=== PATIENT | male | born 1995 | race Caucasian/White ===

== ENCOUNTER 2017-02-09 09:59 | Emergency (ER) | payer OTHER ==
[~2017-02-09] VITALS: Ht 182.9 cm; Wt 113.4 kg
--- NOTE | 2017-02-09 12:02 | ED Psychosocial ---
General Chief Complaint: Psych/Social Disorder Stated Complaint: SUICIDAL/PSYCH EVAL Nursing Triage Note: Pt reports he has battled with depression since his senior year of high school. Pt reports suicidal thougths started last year until he was placed on medication. Pt reports taking his medication for 1 month before stopping meds due to increased anxiety. Pt reports no suicidal ideations after that time until recently. 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 Pt has suicidal "fantasy" of how he would kill himself but states he does not have a timeline or the means to do so. History of Present Illness Time seen by provider: 11:56 Initial Comments Patient has ER by the orders of his primary care physician for evaluation prior to being placed in inpatient psych. According to Dr. Rachid Salcedo who spoke with me at 10:00 the patient made suicidal ideation without radius suicidal attempt and has a progressively worsening history of depression most recently possible bipolar. Patient is a college student at [employer] and is concerned about missing classes however we'll do whatever needs to. He does not have a psychiatrist and has not any psych meds at this time. Patient states that he had one prior suicide attempt and February 2016 when he tried to cut on his throat and face with a knife but said it hurt too bad however he was definitely feeling like that time so he went and got some help and got started on some citalopram but said he did not complete the months course because it took him from an depressed feeling anxious. He did not follow up with anybody at that time. 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 Now he feels that over the last month or 2 he is been spiraling again and his concerns were that if he did not get on some appropriate medication and attention to include counseling that he might get to the state he was at at that point. He says he has no plan to harm himself or kill himself now. He is not suicidal at the time however he does entertain fantasies of suicide but nothing in particular and no plan. He states he does not use any recreational drugs but he has tried marijuana long time ago and did not like it. He says he used acid several times in July 2015 for about a month and he got off and has not gone back to sense. No other history of injectable snorted or smoked drugs. On review of the clinicians note from today patient has noted he has some days where he sleeps excessively is much his 14 hours a day and some days where he sleeps very little as well as 5 hours a day and has gone without sleeper as long as 3 days at that time he was trying to read more washcloth documentaries and learn how to care cancer. He states he has hyper exuberant hyper energy racing thoughts alternated with periods of depression. At present he is feeling very depressed and endorsing anhedonia. He was seen at [facility] and [facility] and that's when he was started on citalopram which made him feel way worse, irritable, more anxious, difficult to be around others area marijuana caused him a lot of paranoia and an June 2015 he tried LSD 4 times. No legal or gambling trouble. He was diagnosed with ADD as a child and put on medication but not for very long. It made him sick. No history of learning disability. The assessment and plan that time as the patient had bipolar disorder with a currently severe depressed episode without any psychotic features. The plan was to get the patient inpatient psych for mood stabilizers and safety given his suicidal fantasies that he was endorsing today. His fantasies include going on the wooden slitting his own throat. Allergies and Home Medications Allergies Coded Allergies: No Known Drug Allergies (Unverified , 02/09/17) Constitutional: No chills, No diaphoresis, No fever, No malaise EENTM: No ear discharge, No ear pain, No eye pain Respiratory: No cough, No short of breath Cardiovascular: No chest pain, No edema, No palpitations Gastrointestinal: No abdominal pain, No constipation, No diarrhea, No nausea Genitourinary: No discharge, No dysuria Musculoskeletal: No back pain, No joint pain, No joint swelling Skin: No dryness, No pruritus, No rash Psychiatric/Neurological: Denies Headache, Denies Numbness, Denies Paresthesia , Denies Seizure Past Lohwghg-Iyrsme-Kcexvf Hx Patient Social History Alcohol Use: Occasionally Uses (810 drinks usually once a month otherwise one or 2 beers every few days.) Number of Drinks Today: 2 Alcohol Beverage of Choice: Beer, Vodka Recreational Drug Use: No Recent Foreign Travel: No Contact w/Someone Who Travel: No Recent Infectious Disease Expo: No Physical Exam Vital Signs Vital Sign - Last 12Hours 02/09/17 10:40 Temp 97.5 Pulse 75 Resp 18 B/P (MAP) 142/68 Pulse Ox 96 O2 Delivery Room Air Capillary Refill : Less Than 3 Seconds General Appearance: WD/WN, no apparent distress HEENT: PERRL/EOMI, pharynx normal Neck: non-tender, supple Respiratory: chest non-tender, lungs clear, normal breath sounds Cardiovascular: normal peripheral pulses, regular rate, rhythm, no edema Peripheral Pulses: 2+ Radial Pulses (R), 2+ Radial Pulses (L) Gastrointestinal: normal bowel sounds, non tender, soft Extremities: non-tender, normal inspection, no pedal edema, normal capillary refill Neurologic/Psychiatric: school psychologist II-XII nml as tested, alert, normal mood/affect, oriented x 3 Appearance/Memory: appropriate appearance, appropriate insight, neat, no memory impairment, No denies illness Behavior/Eye Contact: cooperative, good eye contact, normal speech Thoughts/Hallucinations: normal thought pattern, no apparent hallucination Skin: normal color, warm/dry Progress/Results/Core Measures Results/Orders Lab Results Laboratory Tests Test 02/09/17 12:27 Range/Units White Blood Count 7.7 4.3-11.0 10^3/uL Red Blood Count 5.30 4.35-5.85 10^6/uL Hemoglobin 15.4 13.3-17.7 G/DL Hematocrit 45 40-54 % Mean Corpuscular Volume 86 80-99 FL Mean Corpuscular Hemoglobin 29 25-34 PG Mean Corpuscular Hemoglobin Concent 34 32-36 G/DL Red Cell Distribution Width 12.4 10.0-14.5 % Platelet Count 283 130-400 10^3/uL Mean Platelet Volume 10.8 H 7.4-10.4 FL Neutrophils (%) (Auto) 63 42-75 % Lymphocytes (%) (Auto) 27 12-44 % Monocytes (%) (Auto) 8 0-12 % Eosinophils (%) (Auto) 2 0-10 % Basophils (%) (Auto) 0 0-10 % Neutrophils # (Auto) 4.8 1.8-7.8 X 10^3 Lymphocytes # (Auto) 2.1 1.0-4.0 X 10^3 Monocytes # (Auto) 0.6 0.0-1.0 X 10^3 Eosinophils # (Auto) 0.2 0.0-0.3 10^3/uL Basophils # (Auto) 0.0 0.0-0.1 10^3/uL Urine Color YELLOW Urine Clarity CLEAR Urine pH 8 5-9 Urine Specific [place] 1.010 L 1.016-1.022 Urine Protein NEGATIVE NEGATIVE Urine Glucose (UA) NEGATIVE NEGATIVE Urine Ketones NEGATIVE NEGATIVE Urine Nitrite NEGATIVE NEGATIVE Urine Bilirubin NEGATIVE NEGATIVE Urine Urobilinogen NORMAL NORMAL MG/DL Urine Leukocyte Esterase NEGATIVE NEGATIVE Urine RBC (Auto) NEGATIVE NEGATIVE Urine RBC NONE /HPF Urine WBC NONE /HPF Urine Squamous Epithelial Cells NONE /HPF Urine Crystals NONE /LPF Urine Bacteria NEGATIVE /HPF Urine Casts NONE /LPF Urine Mucus NEGATIVE /LPF Urine Culture Indicated NO Sodium Level 139 135-145 MMOL/L Potassium Level 4.3 3.6-5.0 MMOL/L Chloride Level 107 98-107 MMOL/L Carbon Dioxide Level 21 21-32 MMOL/L Anion Gap 11 5-14 MMOL/L Blood Urea Nitrogen 9 7-18 MG/DL Creatinine 0.85 0.60-1.30 MG/DL Estimat Glomerular Filtration Rate > 60 BUN/Creatinine Ratio 11 Glucose Level 68 L 70-105 MG/DL Calcium Level 9.7 8.5-10.1 MG/DL Total Bilirubin 0.7 0.1-1.0 MG/DL Aspartate Amino Transf (AST/SGOT) 32 5-34 U/L Alanine Aminotransferase (ALT/SGPT) 52 0-55 U/L Alkaline Phosphatase 72 40-136 U/L Total Protein 7.7 6.4-8.2 GM/DL Albumin 4.4 3.2-4.5 GM/DL Salicylates Level < 5.0 L 5.0-20.0 MG/DL Urine Opiates Screen NEGATIVE NEGATIVE Urine Oxycodone Screen NEGATIVE NEGATIVE Urine Methadone Screen NEGATIVE NEGATIVE Urine Propoxyphene Screen NEGATIVE NEGATIVE Acetaminophen Level < 10 L 10-30 UG/ML Urine Barbiturates Screen NEGATIVE NEGATIVE Ur Tricyclic Antidepressants Screen NEGATIVE NEGATIVE Urine Phencyclidine Screen NEGATIVE NEGATIVE Urine Amphetamines Screen NEGATIVE NEGATIVE Urine Methamphetamines Screen NEGATIVE NEGATIVE Urine Benzodiazepines Screen NEGATIVE NEGATIVE Urine Cocaine Screen NEGATIVE NEGATIVE Urine Cannabinoids Screen NEGATIVE NEGATIVE Serum Alcohol < 10 <10 MG/DL My Orders Orders - SUZETTE LUNA Ua Culture If Indicated (02/09/17 11:52) Cbc With Automated Diff (02/09/17 11:52) Comprehensive Metabolic Panel (02/09/17 11:52) Alcohol (02/09/17 11:52) Drug Screen Stat (Urine) (02/09/17 11:52) Acetaminophen (02/09/17 11:52) Salicylate (02/09/17 11:52) Ekg Tracing (02/09/17 11:52) Saline Lock/Iv-Start (02/09/17 11:52) Monitor-Rhythm Ecg Trace Only (02/09/17 11:52) General/Regular (02/09/17 Lunch) Vital Signs/I&O Vital Sign - Last 12Hours 02/09/17 10:40 Temp 97.5 Pulse 75 Resp 18 B/P (MAP) 142/68 Pulse Ox 96 O2 Delivery Room Air Blood Pressure Mean: 92 Progress Note #1: Time: 12:59 Progress Note By history patient does appear to be bipolar and a depressed state this time. He will probably need to go inpatient psych for his own safety given his recurrent endorsement of suicidal ideation Fantasy. Presently he states he has no plan or suicidal ideation at this time. I've already asked [facility] to come and evaluate the patient. I am advised that they are in the middle of another assessment but will come over next. Progress Note #2: Time: 14:15 Progress Note Lyle East from [facility] evaluated the patient feels would be reasonable to set up outpatient treatment plan including [facility] social services assistant following the patient daily as well as using [facility] as needed start medicines. Tried to contact Rachid Salcedo and left a message so we can discuss may be starting a medicine on him today if she wants. Consults Consults : Consulting Physician: RACHID SALCEDO MD Consults Notes [id number]: Discussed the case and the plan from [facility] and Dr. Salcedo said she would discuss it with the nurse practitioner who was seeing the patient. She is okay with plan. She does not recommend starting a medicine at this time because she will have the nurse practitioner contact patient directly and get a medicine started either today or tomorrow. Departure Impression Impression: Primary Impression: Bipolar 1 disorder, depressed, severe Additional Impression: Suicidal thoughts Disposition: 01 HOME, SELF-CARE Condition: Stable Departure-Patient Inst. Decision time for Depature: 14:37 Referrals: [facility] (PCP/Family) Primary Care Physician Add. Discharge Instructions: Follow the discharge plan and outpatient follow-up management plan as lying out by [facility] LYLE puga. If you have questions you can call him or you can call your clinic's office at [facility] at [phone]. If you begin to feel unstable or have suicidal thoughts please return to the ER immediately or call a trusted friend or family member to get help immediately and give us an opportunity to help you before you make any permanent decisions. All discharge instructions reviewed with patient and/or family. Voiced understanding. Work/School Note: School/Childcare Release Date Seen in the Emergency Department: Feb 09, 2017 Time Dismissed from Emergency Department: 14:41 Return to School: Feb 10, 2017 Restrictions: No Restrictions Copy Copies To 1: CRISTOPHER DUGAN TITUS J Feb 09, 2017 12:02
[2017-02-09 12:38] LABS: BASOPHILS % (AUTO) 0 % (0-10); EOSINOPHILS # (AUTO) 0.2 10^3/uL (0.0-0.3); EOSINOPHILS % (AUTO) 2 % (0-10); LYMPHOCYTES # (AUTO) 2.1 X 10^3 (1.0-4.0); LYMPHOCYTES % (AUTO) 27 % (12-44); MEAN CORPUSCULAR HEMOGLOBIN 29 PG (25-34); MEAN CORPUSCULAR HGB CONC 34 G/DL (32-36); MEAN CORPUSCULAR VOLUME 86 FL (80-99); MEAN PLATELET VOLUME 10.8 FL (7.4-10.4); MONOCYTES # (AUTO) 0.6 X 10^3 (0.0-1.0); MONOCYTES % (AUTO) 8 % (0-12); NEUTROPHILS # (AUTO) 4.8 X 10^3 (1.8-7.8); NEUTROPHILS % (AUTO) 63 % (42-75); PLATELET COUNT 283 10^3/uL (130-400); RED CELL DISTRIBUTION WIDTH 12.4 % (10.0-14.5); WHITE BLOOD COUNT 7.7 10^3/uL (4.3-11.0)
[2017-02-09 12:39] LABS: BILIRUBIN,URINE NEGATIVE (NEGATIVE); KETONES,URINE NEGATIVE (NEGATIVE); LEUKOCYTE ESTERASE ,URINE NEGATIVE (NEGATIVE); NITRITE,URINE NEGATIVE (NEGATIVE); PH,URINE 8 (5-9); PROTEIN,URINE NEGATIVE (NEGATIVE); UROBILINOGEN,URINE NORMAL (NORMAL)
[2017-02-09 12:59] LABS: ALANINE AMINOTRANSFERASE 52 U/L (0-55); ALBUMIN 4.4 GM/DL (3.2-4.5); ALCOHOL < 10 MG/DL (<10); ANION GAP 11 MMOL/L (5-14); ASPARTATE AMINO TRANSFERASE 32 U/L (5-34); BILIRUBIN,TOTAL 0.7 MG/DL (0.1-1.0); BLOOD UREA NITROGEN 9 MG/DL (7-18); BUN/CREATININE RATIO 11; CALCIUM 9.7 MG/DL (8.5-10.1); CARBON DIOXIDE 21 MMOL/L (21-32); CHLORIDE 107 MMOL/L (98-107); CREATININE SERUM 0.85 MG/DL (0.60-1.30); GFR ESTIMATED > 60; GLUCOSE 68 MG/DL (70-105); POTASSIUM 4.3 MMOL/L (3.6-5.0); SALICYLATE < 5.0 MG/DL (5.0-20.0); SODIUM 139 MMOL/L (135-145); TOTAL PROTEIN 7.7 GM/DL (6.4-8.2)
[2017-02-09 13:01] LABS: ACETAMINOPHEN < 10 UG/ML (10-30)
[2017-02-09 14:44] VITALS: BP 120/74
== END 2017-02-09 14:44 | disposition home or self-care (01) ==
LOC: EDUNIT# 09:59 → ER 10:02
DX: F31.5 Bipolar disorder, current episode depressed, severe, with psychotic features (principal); R45.851 Suicidal ideations
CPT/HCPCS: 36415; 80053; 80306; 80320; 80329; 81000; 85025; 99284

== ENCOUNTER 2019-03-19 00:22 | Emergency (ER) | payer SELFPAY ==
[~2019-03-19] VITALS: Ht 182 cm; Wt 127.0 kg
--- NOTE | 2019-03-19 00:37 | ED GU-Male ---
General Chief Complaint: Male Reproductive Stated Complaint: TESTICAL ISSUE,SWOLLEN,BLEEDING Source: patient Exam Limitations: no limitations History of Present Illness Date Seen by Provider: Mar 19, 2019 Time Seen by Provider: 00:21 Initial Comments Patient presents to ER by private conveyance with significant others and chief complaint of right testicular/scrotal swelling pain and blood coming from the scrotum or rectum. He noticed for the past couple days he's been having some blood on his scrotum while urinating. Showing some mild pain. 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 He's not had any other abdominal surgeries. He has some swelling on the top of his le ft testicle was palpable. He denies any blood or discharge from the penis. No difficulty urinating. No nausea or vomiting. He has not taken anything for the pain. He says is been going on for about 3 months and the swelling is just grown since then. He went saw primary care about it at [facility]. They ordered a sonogram which he did not complete. He takes lithium and Latuda for bipolar disorder. Allergies and Home Medications Allergies Coded Allergies: No Known Drug Allergies (Unverified , 02/09/17) Patient Home Medication List Home Medication List Reviewed: Yes Review of Systems Review of Systems Constitutional: No chills, No fever EENTM: No blurred vision, No double vision Respiratory: No cough, No short of breath Cardiovascular: No chest pain, No edema Gastrointestinal: No abdominal pain, No constipation, No diarrhea, No nausea Genitourinary: see HPI; denies burning, denies discharge Past Bcdqefe-Btqyyi-Kqlbgl Hx Patient Social History Alcohol Use: Occasionally Uses Alcohol Beverage of Choice: Beer, Vodka Recreational Drug Use: No Smoking Status: Current Everyday Smoker Recent Foreign Travel: No Contact w/Someone Who Travel: No Past Medical History Surgeries: No Respiratory: No Cardiac: No Neurological: No Genitourinary: No Gastrointestinal: No Musculoskeletal: No Endocrine: No HEENT: No Cancer: No Psychosocial: Yes Depression Integumentary: No Blood Disorders: No Physical Exam Vital Signs Vital Signs - First Documented 03/19/19 00:31 Temp 37.2 Pulse 88 Resp 19 B/P (MAP) 140/101 (114) Pulse Ox 99 O2 Delivery Room Air Capillary Refill : Height, Weight, BMI Height: 6'0" Weight: 250lbs. oz. 113.429165lm; BMI Method:Stated General Appearance: WD/WN, no apparent distress HEENT: PERRL/EOMI, normal ENT inspection Neck: non-tender, full range of motion Cardiovascular: normal peripheral pulses, regular rate, rhythm Respiratory: no respiratory distress, no accessory muscle use Rectal: normal exam Male: No testicular tenderness; other (right upper portion of the scrotum laterally has an indurated area of erythema and tenderness with a central poor draining a small amount of purulent material.) Procedures/Interventions I&D : Site: right lateral scrotum Blade Size: 11 I & D Procedure: betadine prep (chlorhexidine and Betadine) Progress After the risks, benefits and alternatives were explained the patient consented to proceed. Skin was thoroughly cleaned with chlorhexidine and water. Was then soaked in Betadine. We injected 4 cc of 1% lidocaine without epinephrine around the wound until he was anesthetized. We then used an 11 blade and made a cross small incision. We expressed a small amount of purulent material from the central pore. Using cotton tipped swabs the wound was thoroughly probed and loculations were broken up. We then used a syringe and flushed 20 cc of sterile water into the wound. Wound was then cleaned again with chlorhexidine. Loose gauze was placed over to wick away serosanguineous drainage. The patient tolerated the procedure well. Progress/Results/Core Measures Suspected Sepsis SIRS Temperature: Pulse: Respiratory Rate: Blood Pressure / Mean: Results/Orders My Orders Orders - SUZETTE LUNA Occult Blood Stool (03/19/19 00:37) Ua Culture If Indicated (03/19/19 00:37) Vital Signs/I&O 03/19/19 00:31 Temp 37.2 Pulse 88 Resp 19 B/P (MAP) 140/101 (114) Pulse Ox 99 O2 Delivery Room Air Capillary Refill : Departure Impression Primary Impression: Abscess of scrotum Disposition: HOME, SELF-CARE Condition: Improved Departure-Patient Inst. Decision time for Depature: 01:01 Referrals: [facility] (PCP/Family) Primary Care Physician Patient Instructions: Abscess Incision and Drainage (DC) Add. Discharge Instructions: Keep clean with regular soap and water only. Keep the wound dry and a piece of gauze packed over to wake away moisture. The skin will close over the next 2 days on its own. Bactrim DS one tablet twice a day with food for the next 5 days. Tylenol 1000 g every 8 hours as needed for pain. Ibuprofen 800 mg every 8 hours as needed for pain. Follow-up with primary care if not seeing improvement in the next 3 days. Call primary care tomorrow to re-schedule the ultrasound. All discharge instructions reviewed with patient and/or family. Voiced understanding. Scripts Sulfamethoxazole/Trimethoprim (Bactrim Ds Tablet) 1 Each Tablet 1 EACH PO BID for 5 Days, #10 TAB 0 Refills Prov: SUZETTE LUNA 03/19/19 SUZETTE LUNA Mar 19, 2019 00:37
[2019-03-19] MEDS ORDERED: SULF1TAB35 PO (01:03)
[2019-03-19 01:12] VITALS: BP 140/101
[2019-03-19] MEDS ORDERED: TRIM/SULFAMETH 160/800 (SEPTRA DS) TAB PO ONE (01:15)
== END 2019-03-19 01:15 | disposition home or self-care (01) ==
LOC: EDUNIT# 00:22 → ER 00:27
DX: N49.2 Inflammatory disorders of scrotum (principal); F32.9 Major depressive disorder, single episode, unspecified; F17.200 Nicotine dependence, unspecified, uncomplicated
CPT/HCPCS: 99283

== ENCOUNTER 2019-05-06 05:41 | Outpatient (CLI) | payer OTHER ==
[~2019-05-06] VITALS: Ht 182.9 cm; Wt 123.6 kg
[~2019-05-06 05:41] MED LIST: SULF1TAB35 PO
[2019-05-06] MEDS ORDERED: CARI1.5C PO (14:25)
[2019-05-06] MEDS ORDERED: LITH300T3 PO (14:25)
== END 2019-05-06 14:31 ==
LOC: PREOP 05:41
PROVIDERS: ATTEND Surgery
DX: Z01.818 Encounter for other preprocedural examination (principal)

== ENCOUNTER 2019-05-13 10:17 | Day surgery (SDC) | payer OTHER ==
[2019-05-13] VITALS (7 sets, daily range): BP systolic 109–120; BP diastolic 57–73
[~2019-05-13] VITALS: Ht 182.9 cm; Wt 123.6 kg
[~2019-05-13 10:17] MED LIST changes: +CARI1.5C PO; +LITH300T3 PO
[2019-05-13] MEDS ORDERED: LACTATED RINGERS 1,000 ML IV STA (10:56)
[2019-05-13] MEDS ORDERED: LACTATED RINGERS 1,000 ML IV ONE (11:09)
--- NOTE | 2019-05-13 11:15 | Progress Note-Pre Operative ---
Pre-Operative Progress Note H&P Reviewed The H&P was reviewed, patient examined and no changes noted. Time Seen by Provider: 11:13 Date H&P Reviewed: May 13, 2019 Time H&P Reviewed: 11:11 Pre-Operative Diagnosis: Rectal bleed KEITH PIERCE DO May 13, 2019 11:15 POS
[2019-05-13] MEDS ORDERED: PROPOFOL INJECTION 50 ML IV ONE (12:31)
[2019-05-13] MEDS ORDERED: MIDAZOLAM 5 MG/5 ML (VERSED) VIAL ONE (12:31)
--- NOTE | 2019-05-13 13:05 | Progress Note-Post Operative ---
Post-Operative Progess Note Surgeon (s)/Band Tacker (s) Surgeon KEITH PIERCE DO Band Tacker: LITTLE Napier Pre-Operative Diagnosis Rectal bleed Post-Operative Diagnosis colon polyps int hemorrhoids Procedure & Operative Findings Date of Procedure 05/13/19 Procedure Performed/Findings colon with snare colon with cold bx Anesthesia Type IV sedation by GLASS UNLOADING EQUIPMENT TENDER Estimated Blood Loss Estimated blood loss (mL): scant Specimens/Packing Specimens Removed sigmoid polyp rectal polyp KEITH PIERCE DO May 13, 2019 13:05 POS
--- NOTE | 2019-05-13 13:08 | Endoscopy Discharge Instruct ---
Endo Procedure/Findings Findings 1.: Polyp 2.: Internal Hemorrhoids Discharge Instructions - Activity: You might feel a little sleepy until tomorrow. This is due to the medicine you received to relax you. Until tomorrow, you should: NOT drive a car, operate machinery or power tools. NOT drink any alcoholic beverages. NOT make any important decisions or sign importortant papers. Do not return to work until tomorrow, unless otherwise instructed. Resume previous activities tomorrow. Diet: Start by taking liquids. If you tolerate liquids, advance to solid food. make appointment for 2 weeks 1.: Colonscopy in 5 years Notify Physician - If you experience excessive bleeding, unusual abdominal pain, fever, or chest pain, contact your doctor immediately. KEITH PIERCE DO May 13, 2019 13:08 POS
--- NOTE | 2019-05-13 14:14 | Anesthesia-General Post-Op ---
MAC Patient Condition Mental Status/LOC: Same as Preop Cardiovascular: Satisfactory Nausea/Vomiting: Absent Respiratory: Satisfactory Pain: Controlled Complications: Absent Post Op Complications Complications None Follow Up Care/Instructions Patient Instructions None needed. Anesthesiology Discharge Order Discharge Order Patient is doing well, no complaints, stable vital signs, no apparent adverse anesthesia problems. No complications reported per nursing. VANDANA RABAGO CRNA May 13, 2019 14:14 POS
--- NOTE | 2019-05-14 04:01 | OPERATIVE REPORT ---
DATE OF SERVICE: PREOPERATIVE DIAGNOSIS: Rectal bleed. POSTOPERATIVE DIAGNOSES: 1. Colon polyps. 2. Internal hemorrhoids. PROCEDURE PERFORMED: 1. Colonoscopy with snare polypectomy. 2. Colonoscopy with cold biopsy. SURGEON: Elvis Belle DO ANESTHESIA: IV sedation by the FARM MANAGEMENT PROFESSOR. SPECIMEN: Polyp from the sigmoid colon and then 3 rectal polyps. BLOOD LOSS: Scant. FLUIDS: Per anesthesia. POSTOPERATIVE CONDITION: Stable. INDICATION FOR PROCEDURE: The patient is a 23-year-old male who had some rectal bleeding and needed a workup. FINDINGS: The patient had 2 flat polyps, one in the sigmoid colon and 1 in the rectum and then 2 larger polyps in the rectum that were snared. PROCEDURE NOTE: After informed consent was obtained, the patient was brought to the endoscopy suite, placed in the bed left lateral decubitus position. He was administered IV sedation by the FARM MANAGEMENT PROFESSOR who then monitored his vitals the entire time, heart rate, blood pressure, pulse ox and the scope was inserted, pushed all the way into about 140 cm, able to get to the cecum, took a picture of appendiceal orifice, noted the ileocecal valve and then slowly withdrew the scope insufflating to look circumferentially at the [place] looking at the cecum, up the ascending colon to the hepatic flexure, then down the transverse colon, the splenic flexure, into the descending colon and then down into the sigmoid. In the sigmoid, saw a small flat polyp, did a biopsy of this and then in the rectum, saw another polyp, did another cold biopsy of this, but then in the rectum, saw two more larger polyps, elected to do a snare polypectomy of these, able to move both of these completely with a snare polypectomy. Retroflexed the scope in the rectal vault, saw some minimal internal hemorrhoids and then removed the scope. The patient tolerated the procedure and recovered in endoscopy suite. Job ID: [id number] DocumentID: [id number] Dictated Date: 05/13/2019 18:38:16 Salesperson Recreational Vehicles Date: 05/14/2019 04:00:33 Dictated By: ELVIS BELLE DO
[2019-05-31] MEDS ORDERED: ACHD5005 PO (11:54)
--- OUTSIDE RECORDS SUMMARY | 2019-06-07 14:19 | XMS REPORT | Continuity of Care Document ---
Author Organization Unknown Address Unknown Phone Unavailable Allergies Active Description Code Type Severity Reaction Onset Reported/Identified Relationship to Patient Clinical Status Yes No Known Drug Allergies [id number] Drug Allergy Unknown N/A 05/27/2019 Medications There is no data. Problems Date Dx Coded Attending Type Code Diagnosis Diagnosed By 05/12/2014 MARIE KENNEDY, DARIEL Olmos 311 DEPRESSIVE DISORDER NEC 05/12/2014 MARIE KENNEDY, DARIEL Oloms 728.87 MUSCLE WEAKNESS 05/12/2014 DARIEL SALAZAR MD 729.5 PAIN IN LIMB 05/12/2014 DARIEL SALAZAR MD 780.93 MEMORY LOSS 02/09/2017 SUZETTE LUNA MD Ot F31. 5 BIPOLAR DISORD, CRNT EPSD DEPRESS, SEVER 02/09/2017 SUZETTE LUNA MD Ot R45.851 SUICIDAL IDEATIONS 03/19/2019 SUZETTE LUNA MD Ot F17.200 NICOTINE DEPENDENCE, UNSPECIFIED, UNCOMP 03/19/2019 SUZETTE LUNA MD Ot F32. 9 MAJOR DEPRESSIVE DISORDER, SINGLE EPISOD 03/19/2019 SUZETTE LUNA MD Ot N49. 2 INFLAMMATORY DISORDERS OF SCROTUM 03/19/2019 SUZETTE LUNA MD Ot N50.811 RIGHT TESTICULAR PAIN 03/22/2019 SUZETTE LUNA MD Ot F17.200 NICOTINE DEPENDENCE, UNSPECIFIED, UNCOMP 03/22/2019 SUZETTE LUNA MD Ot F32. 9 MAJOR DEPRESSIVE DISORDER, SINGLE EPISOD 03/22/2019 SUZETTE LUNA MD Ot N49. 2 INFLAMMATORY DISORDERS OF SCROTUM 03/22/2019 SUZETTE LUNA MD Ot N50.811 RIGHT TESTICULAR PAIN 05/06/2019 KEITH PIERCE DO Ot Z01.8 18 ENCOUNTER FOR OTHER PREPROCEDURAL EXAMIN 05/07/2019 KEITH PIERCE DO Ot Z01.8 18 ENCOUNTER FOR OTHER PREPROCEDURAL EXAMIN 05/13/2019 STAN DO, KEITH B Ot E66.9 OBESITY, UNSPECIFIED 05/13/2019 DELRAVI DO, KEITH B Ot F31.9 BIPOLAR DISORDER, UNSPECIFIED 05/13/2019 DELRAVI DO, KEITH B Ot F41.9 ANXIETY DISORDER, UNSPECIFIED 05/13/2019 DELRAVI DO, KEITH B Ot F90.9 ATTENTION-DEFICIT HYPERACTIVITY DISORDER 05/13/2019 STAN DO, KEITH B Ot K62.1 RECTAL POLYP 05/13/2019 STAN DO, KEITH B Ot K63.5 POLYP OF COLON 05/13/2019 DELRAVI DO, KEITH B Ot K64.8 OTHER HEMORRHOIDS 05/13/2019 DELRAVI DO, KEITH B Ot Z68.3 6 BODY MASS INDEX (BMI) 36.0-36.9, ADULT 05/13/2019 DELRAVI DO, KEITH B Ot Z79.8 99 OTHER DENSITOMETRIST (CURRENT) DRUG THERAPY 05/17/2019 STAN DO, KEITH B Ot E66.9 OBESITY, UNSPECIFIED 05/17/2019 STAN DO, KEITH B Ot F31.9 BIPOLAR DISORDER, UNSPECIFIED 05/17/2019 STAN DO, KEITH B Ot F41.9 ANXIETY DISORDER, UNSPECIFIED 05/17/2019 DELRAVI DO, KEITH B Ot F90.9 ATTENTION-DEFICIT HYPERACTIVITY DISORDER 05/17/2019 STAN DO, KEITH B Ot K62.1 RECTAL POLYP 05/17/2019 STAN DO, KEITH B Ot K63.5 POLYP OF COLON 05/17/2019 STAN DO, KEITH B Ot K64.8 OTHER HEMORRHOIDS 05/17/2019 STAN DO, KEITH B Ot Z68.3 6 BODY MASS INDEX (BMI) 36.0-36.9, ADULT 05/17/2019 DELRAVI DO, KEITH B Ot Z79.8 99 OTHER JAIL (CURRENT) DRUG THERAPY 05/27/2019 DELMAN DO, KEITH B Ot Z01.8 18 ENCOUNTER FOR OTHER PREPROCEDURAL EXAMIN 05/30/2019 DELMAN DO, KEITH B Ot Z01.8 18 ENCOUNTER FOR OTHER PREPROCEDURAL EXAMIN 06/06/2019 STAN DO, KEITH B Ot F31.9 BIPOLAR DISORDER, UNSPECIFIED 06/06/2019 DELRAVI DO, KEITH B Ot F90.9 ATTENTION-DEFICIT HYPERACTIVITY DISORDER 06/06/2019 KEITH PIERCE DO Ot K40.9 0 UNIL INGUINAL HERNIA, W/O OBST OR GANGR, 06/06/2019 KEITH PIERCE DO Ot K62.5 HEMORRHAGE OF ANUS AND RECTUM Procedures Code [place] [address] ROUT INE VENIPUNCTURE DARIEL SALAZAR MD 05/12/2014 80019 COMP REHEN METABOLIC PANEL DARIEL SALAZAR MD 05/12/2014 90126 LIPI D PANEL KARLENE SALAZAR MDFER Lisandro 05/12/2014 04024 ASSA Y OF VITAMIN D KARLENE SALAZAR MDFER Lisandro 05/12/2014 48868 CHRYSTAL MIN B-12 KARLENE SALAZAR MDFER Lisandro 05/12/2014 93222 BLOO D FOLIC ACID SERUM KARLENE SALAZAR MDFER Lisandro 05/12/2014 15353 ASSA Y OF MAGNESIUM DARIEL SALAZAR MD 05/12/2014 15305 ASSA Y OF MYOGLOBIN KARLENE SALAZAR MDFER Lisandro 05/12/2014 36083 ASSA Y OF TOTAL THYROXINE DARIEL SALAZAR MD 05/12/2014 39828 ASSA Y OF FREE THYROXINE KARLENE SALAZAR MDFER Lisandro 05/12/2014 15093 ASSA Y THYROID STIM HORMONE KARLENE SALAZAR MDFER Lisandro 05/12/2014 00619 ASSA Y, TRIIODOTHYRONINE (T3) DARIEL SALAZAR MD 05/12/2014 19199 FREE ASSAY (FT-3) KARLENE SALAZAR MDFER Lisandro 05/12/2014 44286 COMP LETE CBC W/AUTO DIFF WBC DARIEL SALAZAR MD 05/12/2014 46202 RBC SED RATE, NONAUTOMATED DARIEL SALAZAR MD 05/12/2014 72253 ELEC TROCARDIOGRAM, TRACING DARIEL SALAZAR MD 05/12/2014 Results Test Result Range COMPLETE BLOOD COUNT - 05/12/14 11:07 Platelet 297 10^3u 142-424 MPV 10.6 FL 9.4-12.4 Lucas # 0.71 10^3u 0.0-1.0 RBC 5.30 10^6u 4.04-6.13 Lucas % 7.7 % 0-12 RDW 12.8 % 11.6-14.8 Neut # 6.02 10^3u 2.0-6.9 Neut % 65.6 % 37-80 WBC 9.18 10^3u 4.60-10.20 MCV 86.4 FL 80.0-97.0 Baso # 0.03 10^3u 0.0-0.1 Baso % 0.3 % 0-2 Eos # 0.30 10^3u 0-0.7 Eos % 3.3 % 0-7 Lymph % 23.1 % 10-50 MCHC 33.6 G/DL 31.8-35.4 MCH 29.1 PG 27.0-31.2 Lymph # 2.12 10^3u 0.6-3.4 HGB 15.4 G/DL 12.2-18.1 HCT 45.8 % 37.7-53.7 CMP - 05/12/14 11:13 Osmo Calculated 273 MOSM 261-280 Sodium 141 MMOLL 137-145 T. Protein 8.5 G/DL 6.3-8.2 Potassium 4.5 MMOLL 3.6-5.0 T Bili 0.5 MG/DL 0.2-1.3 Calcium 10.1 MG/DL 8.4-10.2 BUN 16 MG/DL 7-21 Chloride 106 MMOLL 98-107 AST 27 U/L 15-46 ALT 45 U/L 7-56 Albumin 5.0 G/DL 3.5-5.0 A/G Ratio 1.4 RATIO 1.2-2.2 Bun/Creat 16.2 RATIO 7-25 Alk Phos 99 U/L 38-126 CO2 26 MMOLL 22-30 Glucose 85 MG/DL 65-110 Globulin 3.5 2.4-3.5 Creatinine 1.0 MG/DL 0.7-1.5 Lipid Profile - 05/12/14 11:13 HDL 58.9 MG/DL 35-100 VLDL 19 0-21 Triglyceride 97 MG/DL 35-160 Cholesterol 247 MG/DL 130-200 LDL Calculated 169 0-130 Magnesium - 05/12/14 11:14 Magnesium 1.9 MG/DL 1.7-2.2 Sed Rate (ESR) - 05/12/14 11:44 Sed Rate (ESR) 1 MM/hr 5-20 Vitamin B12 - 05/12/14 12:34 Vitamin B12 394 PG/ML 200-1000 Folate - 05/12/14 12:34 Folate 11.4 NG/ML 1.5-24.0 Myoglobin - 05/12/14 12:44 Myoglobin 22.6 NG/ML 10-85 TSH - 05/12/14 12:44 TSH 1.71 UIUML 0.35-4.94 Free T4 - 05/12/14 12:44 Free T4 1.15 NG/DL 0.70-1.48 Free T3 - 05/12/14 12:44 Free T3 3.25 PG/ML 1.71-3.71 T3 - 05/12/14 12:44 T3 1.28 NG/ML 0.58-1.59 T4 - 05/12/14 12:44 T4 6.54 UG/DL 4.87-11.72 C-Reactive Protein - 05/13/14 07:28 C-Reactive Protein SENT TO [facility] Vitamin D 25 Hydroxy - 05/16/14 02:36 Vitamin D 25 Hydroxy 20.6 NG/ML 30-100 EKG - 05/21/14 07:28 EKG SMR Complete blood count (CBC) with automate d white blood cell (WBC) differential - 02/09/17 12:27 Blood leukocytes automated count (number/volume) 7.7 10*3/uL 4.3-11.0 Blood erythrocytes automated count (number/volume) 5.30 10*6/uL 4.35-5.85 Venous blood hemoglobin measurement (mass/volume) 15.4 g/dL 13.3-17.7 Blood hematocrit (volume fraction) 45 % 40-54 Automated erythrocyte mean corpuscular volume 86 [ foz_us] 80-99 Automated erythrocyte mean corpuscular h emoglobin (mass per erythrocyte) 29 pg 25-34 Automated erythrocyte mean corpuscular h emoglobin concentration measurement (mass/volume) 34 g/dL 32-36 Automated erythrocyte distribution width ratio 12. 4 % 10.0- 14.5 Automated blood platelet count (count/volume) 283 10*3/uL 130-400 Automated blood platelet mean volume measurement 10.8 [foz_us] 7.4-10.4 Automated blood neutrophils/100 leukocytes 63 % 42-75 Automated blood lymphocytes/100 leukocytes 27 % 12-44 Blood monocytes/100 leukocytes 8 % 0-12 Automated blood eosinophils/100 leukocytes 2 % 0-10 Automated blood basophils/100 leukocytes 0 % 0-10 Blood neutrophils automated count (number/volume) 4.8 10*3 1.8-7.8 Blood lymphocytes automated count (number/volume) 2.1 10*3 1.0-4.0 Blood monocytes automated count (number/volume) 0. 6 10*3 0.0-1.0 Automated eosinophil count 0.2 10*3/uL 0 .0-0.3 Automated blood basophil count (count/volume) 0.0 10*3/uL 0.0-0.1 Complete urinalysis with reflex to cultu re - 02/09/17 12:27 Urine color determination YELLOW NRG Urine clarity determination CLEAR NR G Urine pH measurement by test strip 8 5-9 Specific gravity of urine by test strip 1.010 1.016-1.022 Urine protein assay by test strip, semi-quantitative NEGATIVE NEGATIVE Urine glucose detection by automated test strip NE GATIVE NEGATIVE Erythrocytes detection in urine sediment by light micr oscopy NEGATIVE NEGATIVE Urine ketones detection by automated test strip NE GATIVE NEGATIVE Urine nitrite detection by test strip NEGATIVE NEGATIVE Urine total bilirubin detection by test strip NEGA TIVE NEGATIVE Urine urobilinogen measurement by automated test strip (mass/volume) NORMAL NORMAL Urine leukocyte esterase detection by dipstick NEG ATIVE NEGATIVE Automated urine sediment erythrocyte cou nt by microscopy (number/high power field) NONE NRG Automated urine sediment leukocyte count by microscopy (number/high power field) NONE NRG Bacteria detection in urine sediment by light microsco py NEGATIVE NRG Squamous epithelial cells detection in u rine sediment by light microscopy NONE NRG Crystals detection in urine sediment by light microsco py NONE NRG Casts detection in urine sediment by light microscopy NONE NRG Mucus detection in urine sediment by light microscopy NEGATIVE NRG Complete urinalysis with reflex to culture NO NRG Urine drug screening test - 02/09/17 12: 27 Urine phencyclidine detection by screening method NEGATIVE NEGATIVE Urine benzodiazepines detection by screening method NEGATIVE NEGATIVE Urine cocaine detection NEGATIVE NEGATI VE Urine amphetamines detection by screening method N EGATIVE NEGATIVE Urine methamphetamine detection by screening method NEGATIVE NEGATIVE Urine cannabinoids detection by screening method N EGATIVE NEGATIVE Urine opiates detection by screening method NEGATI VE NEGATIVE Urine barbiturates detection NEGATIVE N EGATIVE Screening urine tricyclic antidepressants detection NEGATIVE NEGATIVE Urine methadone detection by screening method NEGA TIVE NEGATIVE Urine oxycodone detection NEGATIVE NEGA TIVE Urine propoxyphene detection NEGATIVE N EGATIVE Comprehensive metabolic panel - 02/09/17 12:27 Serum or plasma sodium measurement (moles/volume) 139 mmol/L 135-145 Serum or plasma potassium measurement (moles/volume) 4.3 mmol/L 3.6-5.0 Serum or plasma chloride measurement (moles/volume) 107 mmol/L 98-107 Carbon dioxide 21 mmol/L 21-32 Serum or plasma anion gap determination (moles/volume) 11 mmol/L 5-14 Serum or plasma urea nitrogen measurement (mass/volume ) 9 mg/dL 7-18 Serum or plasma creatinine measurement (mass/volume) 0.85 mg/dL 0.60-1.30 Serum or plasma urea nitrogen/creatinine mass ratio 11 NRG Serum or plasma creatinine measurement w ith calculation of estimated glomerular filtration rate > NRG Serum or plasma glucose measurement (mass/volume) 68 mg/dL 70-105 Serum or plasma calcium measurement (mass/volume) 9.7 mg/dL 8.5-10.1 Serum or plasma total bilirubin measurement (mass/volu me) 0.7 mg/dL 0.1-1.0 Serum or plasma alkaline phosphatase felix surement (enzymatic activity/volume) 72 U/L 40-136 Serum or plasma aspartate aminotransfera se measurement (enzymatic activity/volume) 32 U/L 5-34 Serum or plasma alanine aminotransferase measurement (enzymatic activity/volume) 52 U/L 0-55 Serum or plasma protein measurement (mass/volume) 7.7 g/dL 6.4-8.2 Serum or plasma albumin measurement (mass/volume) 4.4 g/dL 3.2-4.5 Serum or plasma salicylates measurement (mass/volume) - 02/09/17 12:27 Serum or plasma salicylates measurement (mass/volume) < mg/dL 5.0-20.0 Serum or plasma acetaminophen measuremen t (mass/volume) - 02/09/17 12:27 Serum or plasma acetaminophen measurement (mass/volume ) < ug/mL 10-30 Serum or plasma ethanol measurement (mas s/volume) - 02/09/17 12:27 Serum or plasma ethanol measurement (mass/volume) < mg/dL <10 CBC - 08/02/17 12:38 WHITE BLOOD CELL COUNT 8.2 Thousand/uL 3 .8-10.8 RED BLOOD CELL COUNT 4.81 Million/uL 4.2 0-5.80 HEMOGLOBIN 14.4 g/dL 13.2-17.1 HEMATOCRIT 42.7 % 38.5-50.0 MCV 88.8 fL 80.0-100.0 MCH 29.9 pg 27.0-33.0 MCHC 33.7 g/dL 32.0-36.0 RDW 12.8 % 11.0-15.0 PLATELET COUNT 363 Thousand/uL 140-400 MPV 10.7 fL 7.5-12.5 ABSOLUTE NEUTROPHILS 5305 cells/uL 1500- 7800 ABSOLUTE LYMPHOCYTES 1968 cells/uL 850-3 900 ABSOLUTE MONOCYTES 648 cells/uL 200-950 ABSOLUTE EOSINOPHILS 221 cells/uL 15-500 ABSOLUTE BASOPHILS 57 cells/uL 0-200 NEUTROPHILS 64.7 % NRG LYMPHOCYTES 24.0 % NRG MONOCYTES 7.9 % NRG EOSINOPHILS 2.7 % NRG BASOPHILS 0.7 % NRG LIPID PANEL - 01/17/19 13:16 CHOLESTEROL, TOTAL 231 mg/dL <200 HDL CHOLESTEROL 39 mg/dL >40 TRIGLYCERIDES 179 mg/dL <150 LDL-CHOLESTEROL 159 mg/dL (calc) NRG CHOL/HDLC RATIO 5.9 (calc) <5.0 NON HDL CHOLESTEROL 192 mg/dL (calc) <13 0 CMP - 01/17/19 13:16 GLUCOSE 86 mg/dL 65-99 UREA NITROGEN (BUN) 9 mg/dL 7-25 CREATININE 1.03 mg/dL 0.60-1.35 eGFR NON-AFR. PERUVIAN 102 mL/min/1.73m2 > OR = 60 eGFR 118 mL/min/1.73m2 > OR = 60 BUN/CREATININE RATIO NOT APPLICABLE (calc) 6-22 SODIUM 138 mmol/L 135-146 POTASSIUM 4.0 mmol/L 3.5-5.3 CHLORIDE 104 mmol/L 98-110 CARBON DIOXIDE 19 mmol/L 20-32 CALCIUM 9.7 mg/dL 8.6-10.3 PROTEIN, TOTAL 7.4 g/dL 6.1-8.1 ALBUMIN 4.4 g/dL 3.6-5.1 GLOBULIN 3.0 g/dL (calc) 1.9-3.7 ALBUMIN/GLOBULIN RATIO 1.5 (calc) 1.0-2. 5 BILIRUBIN, TOTAL 0.7 mg/dL 0.2-1.2 ALKALINE PHOSPHATASE 65 U/L 40-115 AST 49 U/L 10-40 ALT 100 U/L 9-46 TSH - 01/17/19 13:16 TSH 1.54 mIU/L 0.40-4.50 LITHIUM (ESKALITH(R)), SERUM - 01/17/19 13:16 LITHIUM 0.4 mmol/L 0.6-1.2 LITHIUM (ESKALITH(R)), SERUM - 03/27/19 15:33 LITHIUM 0.6 mmol/L 0.6-1.2 Complete blood count (CBC) with automate d white blood cell (WBC) differential - 05/31/19 07:35 Blood leukocytes automated count (number/volume) 10.9 10*3/uL 4.3-11.0 Blood erythrocytes automated count (number/volume) 4.86 10*6/uL 4.35-5.85 Venous blood hemoglobin measurement (mass/volume) 14.3 g/dL 13.3-17.7 Blood hematocrit (volume fraction) 42 % 40-54 Automated erythrocyte mean corpuscular volume 86 [ foz_us] 80-99 Automated erythrocyte mean corpuscular h emoglobin (mass per erythrocyte) 29 pg 25-34 Automated erythrocyte mean corpuscular h emoglobin concentration measurement (mass/volume) 34 g/dL 32-36 Automated erythrocyte distribution width ratio 12. 5 % 10.0- 14.5 Automated blood platelet count (count/volume) 330 10*3/uL 130-400 Automated blood platelet mean volume measurement 10.4 [foz_us] 7.4-10.4 Automated blood neutrophils/100 leukocytes 65 % 42-75 Automated blood lymphocytes/100 leukocytes 22 % 12-44 Blood monocytes/100 leukocytes 8 % 0-12 Automated blood eosinophils/100 leukocytes 4 % 0-10 Automated blood basophils/100 leukocytes 1 % 0-10 Blood neutrophils automated count (number/volume) 7.1 10*3 1.8-7.8 Blood lymphocytes automated count (number/volume) 2.4 10*3 1.0-4.0 Blood monocytes automated count (number/volume) 0. 9 10*3 0.0-1.0 Automated eosinophil count 0.4 10*3/uL 0 .0-0.3 Automated blood basophil count (count/volume) 0.1 10*3/uL 0.0-0.1 Methicillin resistant Staphylococcus aur eus (MRSA) screening culture - 05/31/19 07:35 Methicillin resistant Staphylococcus aureus (MRSA) scr eening culture NEG NRG Encounters ACCT No. Visit Date/Time Discharge Status Pt. Type Provider Facility Loc./Unit Complaint [id number] 05/12/2014 10:38:00 05/12/2014 10:38 :00 DIS Outpatient MARIE KENNEDY, DARIEL Mcmahon [facility] OTHER [id number] 05/31/2019 07:05:00 13:09:00 DIS Outpatient KEITH PIERCE DO Via [facility] LEFT INGUINAL HERNIA [id number] 05/27/2019 05:46:00 12:58:00 DIS Outpatient KEITH PIERCE DO Via [facility] PREOP LEFT INGUINAL HERNIA [id number] 05/13/2019 10:17:00 13:55:00 DIS Outpatient KEITH PIERCE DO [facility] ENDO RECTAL BLEEDING [id number] 05/06/2019 05:41:00 14:31:00 DIS Outpatient KEITH PIERCE DO [facility] PREOP COLONOSCOPY [id number] 03/19/2019 00:27:00 01:15:00 DIS Emergency SUZETTE LUNA MD [facility] ER TESTICAL ISSUE,SWOLLEN, BLEEDING [id number] 02/09/2017 10:02:00 14:44:00 DIS Emergency SUZETTE LUNA MD [facility] ER SUICIDAL/PSYCH EVAL [id number] 06/04/2019 11:00:00 [id number] 03/27/2019 15:20:00 Document Registration [id number] 01/17/2019 12:40:00 Document Registration [id number] 08/02/2017 12:05:00 Document Registration
== END 2019-05-13 13:55 ==
LOC: ENDO 10:17
PROVIDERS: ATTEND Surgery
DX: K63.5 Polyp of colon (principal); K62.1 Rectal polyp; K64.8 Other hemorrhoids; E66.9 Obesity, unspecified; F90.9 Attention-deficit hyperactivity disorder, unspecified type; F41.9 Anxiety disorder, unspecified; F31.9 Bipolar disorder, unspecified; Z68.36 Body mass index [BMI] 36.0-36.9, adult; Z79.899 Other long term (current) drug therapy
CPT/HCPCS: 88305

== ENCOUNTER 2019-05-27 05:46 | Outpatient (CLI) | payer OTHER ==
[~2019-05-27] VITALS: Ht 182 cm; Wt 122.0 kg
[2019-05-27] MEDS ORDERED: LITH300T3 PO (12:42)
[2019-05-27] MEDS ORDERED: CARI3CAP PO (12:42)
== END 2019-05-27 12:58 | disposition home or self-care (01) ==
LOC: PREOP 05:46
PROVIDERS: ATTEND Surgery
DX: Z01.818 Encounter for other preprocedural examination (principal)

== ENCOUNTER 2019-05-31 07:05 | Day surgery (SDC) | payer OTHER ==
[~2019-05-31] VITALS: Ht 182 cm; Wt 122.0 kg
[2019-05-31] VITALS (11 sets, daily range): BP systolic 111–129; BP diastolic 62–92
[~2019-05-31 07:05] MED LIST changes: +CARI3CAP PO
[2019-05-31] MEDS ORDERED: MIDAZOLAM 2 MG/2 ML (VERSED) VIAL ONE (07:18)
[2019-05-31] MEDS ORDERED: proPOfol 200 MG/20 ML (DIPRIVAN) VIAL IV ONE (07:18)
[2019-05-31] MEDS ORDERED: fentaNYL INJECTION 100 MCG/2 ML AMP ONE (07:18)
[2019-05-31] MEDS ORDERED: LIDOCAINE PF 2% 5 ML (XYLOCAINE) VIAL ONE (07:18)
[2019-05-31] MEDS ORDERED: SEVOFLURANE (ULTANE) 15 ML INHAL SOLN ONE (07:18)
[2019-05-31] MEDS ORDERED: ROCURONIUM 10 MG/ML 5 ML SYRINGE IV ONE ×2 (07:18→09:22)
[2019-05-31] MEDS ORDERED: DEXAMETHASONE 10 MG/ML (DECADRON) 1 ML VIAL ONE (07:18)
[2019-05-31] MEDS ORDERED: ONDANSETRON 4 MG/2 ML (SDV) Z0FRAN ONE (07:18)
[2019-05-31] MEDS ORDERED: BUP/EPI 0.5% 1:200,000 (SENSORCAINE) 30 ML VIAL ONE (07:25)
[2019-05-31] MEDS ORDERED: ceFAZolin 2 GM/50 ML NS 50 ML IV ONE (07:30)
[2019-05-31] MEDS: LACTATED RINGERS 1,000 ML IV PRN ×2 (07:48→09:15)
[2019-05-31 07:55] LABS: BASOPHILS # (AUTO) 0.1 10^3/uL (0.0-0.1); BASOPHILS % (AUTO) 1 % (0-10); EOSINOPHILS # (AUTO) 0.4 10^3/uL (0.0-0.3); EOSINOPHILS % (AUTO) 4 % (0-10); HEMATOCRIT 42 % (40-54); HEMOGLOBIN 14.3 G/DL (13.3-17.7); LYMPHOCYTES # (AUTO) 2.4 X 10^3 (1.0-4.0); LYMPHOCYTES % (AUTO) 22 % (12-44); MEAN CORPUSCULAR HEMOGLOBIN 29 PG (25-34); MEAN CORPUSCULAR HGB CONC 34 G/DL (32-36); MEAN CORPUSCULAR VOLUME 86 FL (80-99); MEAN PLATELET VOLUME 10.4 FL (7.4-10.4); MONOCYTES # (AUTO) 0.9 X 10^3 (0.0-1.0); MONOCYTES % (AUTO) 8 % (0-12); NEUTROPHILS # (AUTO) 7.1 X 10^3 (1.8-7.8); NEUTROPHILS % (AUTO) 65 % (42-75); PLATELET COUNT 330 10^3/uL (130-400); RED CELL DISTRIBUTION WIDTH 12.5 % (10.0-14.5); WHITE BLOOD COUNT 10.9 10^3/uL (4.3-11.0)
[2019-05-31] MEDS ORDERED: DESFLURANE (SUPRANE) 15 ML INHAL SOLN ONE ×6 (08:37→10:45)
[2019-05-31] MEDS ORDERED: HYDROmorphone 2 MG/ML VIAL (DILAUDID) ONE (08:37)
[2019-05-31] MEDS ORDERED: GLYCOPYRROLATE 0.2 MG/ML (ROBINUL) 2 ML VIAL ONE (10:38)
[2019-05-31] MEDS ORDERED: NEOSTIGMINE 3 MG/3 ML VIAL ONE (10:38)
[2019-05-31] MEDS ORDERED: KETOROLAC 30 MG/ML VIAL ONE (10:41)
[2019-05-31] MEDS ORDERED: ONDANSETRON 4 MG/2 ML (SDV) Z0FRAN IVP PRN (11:15)
[2019-05-31] MEDS ORDERED: HYDROmorphone 2 MG/ML VIAL (DILAUDID) IV ONE (11:15)
--- NOTE | 2019-05-31 11:51 | Progress Note-Post Operative ---
Post-Operative Progess Note Surgeon (s)/Market Development Analyst (s) Surgeon KEITH PIERCE DO Market Development Analyst: Liset Pre-Operative Diagnosis LEFT INGUINAL HERNIA Post-Operative Diagnosis same - direct Procedure & Operative Findings Date of Procedure 05/31/19 Procedure Performed/Findings Laparoscopic Left IH with robot assistance Anesthesia Type GET Estimated Blood Loss Estimated blood loss (mL): scant Specimens/Packing Specimens Removed none KEITH PIERCE DO May 31, 2019 11:51
[2019-05-31] MEDS ORDERED: ACHD5005 PO (11:54)
--- NOTE | 2019-05-31 11:54 | Discharge Inst-Surgical ---
Discharge Inst-Surgical Reconcile Patient Problems Problems Reviewed?: Yes Depart Medication/Instructions New, Converted or Re-Newed RX: RX Given to Pt/Family Patient Instructions Follow up Appt: Make appointment for 1 week. [phone] Instructions: No lifting greater than 20 pounds. No strenuous activity. May shower in 24 hours, no tub bath or soaking. Use incentive spirometer at home as directed. No Smoking Skin/Wound Care: May remove bandages in am. You need to leave the Dermabond on incision it will fall off on it's own. Symptoms to Report: Appetite Changes, Extremity Discoloration, Numbness/Tingling, Swelling Increased, Bleeding Excessive, Eyesight Changes, Pain Increased, Urine Color Change, Constipation(Persistent), Fever over 101 degree F, Pain/Pressure in chest, Urinating Difficulty, Cough Up/Vomit Blood, Heart Beat Irreg/Pounding, Pain/Pressure in jaw, Cramps in feet or legs, Lightheadedness, Pain/Pressure in shoulder, Diarrhea(Persistent), Memory Changes Suddenly, Questions/Concerns, Weight gain consecutive days, Dizziness/Fainting, Nausea/Vomiting, Shortness of Breath, Weight gain over 2 pounds If questions or concerns contact your physician Or seek help at emergency department. Activity Activity as Tolerated: Yes Activity Instructions: Avoid Stress to Incision Driving Instructions: No Driving/Refer to Dr. Oconnor Discharge Diet: No Restrictions Diet After 24 Hours: Clear Liquid if Nauseous If Any Problems/Questions/Issu: Contact Your Physician, Go to Emergency Room Skin/Wound Care Infection Signs and Symptoms: Increased Redness, Foul Odor of Wound, Increased Drainage, Skin Itchy or Has a Rash, Increased Swelling, Temperature Above 101 F Wound Care Comment: heating pad to shoulder or neck tonight for pain Bathing Instructions: Shower Stitches/Pedro/Dermabond Dis: Dermabond Ice Pack: Ice On and Off Site KEITH PIERCE DO May 31, 2019 11:54
--- NOTE | 2019-06-01 11:01 | OPERATIVE REPORT ---
DATE OF SERVICE: 05/31/2019 PREOPERATIVE DIAGNOSIS: Left inguinal hernia. POSTOPERATIVE DIAGNOSIS: Left inguinal hernia, direct. PROCEDURE: Laparoscopic repair of left inguinal hernia with robotic assistance. SURGEON: Elvis Belle DO. DRAW MACHINE OPERATOR: Germán Hutchins DO. ANESTHESIA: General endotracheal tube. SPECIMENS: None. BLOOD LOSS: Scant. FLUIDS: Per anesthesia. POSTOPERATIVE CONDITION: Stable. INDICATION FOR PROCEDURE: The patient is a 23-year-old male who had a diagnosis of left inguinal hernia. FINDINGS: The patient had a direct left inguinal hernia. PROCEDURE NOTE: After informed consent was obtained, the patient was brought to the operating room, placed on the operating table in supine position, sterilely prepped and draped in normal fashion. Local lidocaine was used to infiltrate the skin above the umbilicus. I made the incision with #11 blade, carried down through the skin into subcutaneous tissue, then deepened down to subcutaneous tissue with Bovie electrocautery down to the fascia. Fascia incised with Bovie electrocautery, bluntly entered the abdomen, swept a finger around, placed 0 Vicryl [id number] suture, then placed 11 mm trocar port under direct visualization. Created pneumoperitoneum and then placed 2 more ports, approximately 10 cm to either side of the umbilical port and slightly above it using local lidocaine, 11 blade for stab incision make an 8 mm incision, then advancing the robotic trocar ports under direct visualization. Once these were answered, docked the robot. I then went down to the robotic console. I scored the peritoneum approximately 5 cm above the defect from the lateral to medial direction and then down the medial umbilical ligament and almost hockey stick type. Once this was done with Bovie electrocautery, I then carefully started pushing the peritoneal reflection away from all of the tissue going down in the midline all the way down to the to the pubic bone. Once I was able to see this, I then worked laterally taking down the peritoneal reflection coming across identifying the vas deferens and cord structures and then made sure to pull this out, pulled out what looked like a little bit of a cord lipoma. Once I had freed up all the peritoneal reflection and pulled this down, I got a good amount of space and then elected to place a large 3D Bard mesh, sutured once at the pubic bone, Roney's ligament and then sutured out laterally to hold the mesh out. It laid out nicely. At this point, I then closed the peritoneal reflection with a 2-0 V-Loc running suture and then actually there was a little bit of small hole down at the base of the peritoneal reflection from when we pulled it inferiorly, sutured this closed with another 2-0 V-Loc running suture. Mesh laid in nicely, peritoneal reflection was closed at this point, then removed all the ports under direct visualization, allowed pneumoperitoneum to escape. Closed the supraumbilical incision, closing the fascia with 0 Vicryl suture previously placed. Copiously irrigated incisions with normal saline, closing the 2 small 8 mm incisions with 2 interrupted 4-0 undyed Monocryl subcuticular stitches, closed supraumbilical incision with 3 interrupted 4-0 undyed Monocryl subcuticular stitches. Area was cleaned and dried. Dermabond placed. Sponge and needle count correct at the end of the case. Dr. Hutchins assisted in this case helping to make incisions, closed incisions, helped with identifying anatomy and passing sutures. Job ID: [id number] DocumentID: [id number] Dictated Date: 05/31/2019 17:33:11 Delivery Mgr Date: 06/01/2019 11:00:46 Dictated By: DO MATTHEW HERNANDEZ
== END 2019-05-31 13:09 | disposition home or self-care (01) ==
LOC: SDC 07:05
PROVIDERS: ATTEND Surgery
DX: K40.90 Unilateral inguinal hernia, without obstruction or gangrene, not specified as recurrent (principal); K62.5 Hemorrhage of anus and rectum; F90.9 Attention-deficit hyperactivity disorder, unspecified type; F31.9 Bipolar disorder, unspecified
CPT/HCPCS: 36415; 85025; 87081; 94664